=== PATIENT | male | born 1945 | race Caucasian/White ===

== ENCOUNTER 2022-04-16 20:30 | Emergency (ER) | payer MEDICARE ==
[~2022-04-16] VITALS: Ht 172.7 cm; Wt 98.1 kg
[2022-04-16 20:34] VITALS: BP 157/67
== END 2022-04-17 00:04 | disposition home or self-care (01) ==
LOC: EDH 20:30
DX: M25.422 Effusion, left elbow (principal); M79.661 Pain in right lower leg; E78.00 Pure hypercholesterolemia, unspecified; X50.1XXA Overexertion from prolonged static or awkward postures, initial encounter; Y93.89 Activity, other specified; Y92.89 Other specified places as the place of occurrence of the external cause; Y99.8 Other external cause status
CPT/HCPCS: 73060; 73600; 93971